=== PATIENT | female | born 1950 | race Caucasian/White ===

== ENCOUNTER → 2016-06-21 | Outpatient (CLI) | payer OTHER, BC ==
[~2016-06-21] MED LIST: ASPEC81 PO; METO50TA7 PO; MULT-506 PO; OXYC1TAB3 PO
--- NOTE | 2016-06-21 13:30 | MAMMOGRAPHY REPORT ---
BILATERAL DIGITAL SCREENING MAMMOGRAM WITH CAD: 06/21/2016 TECHNIQUE: Current study was also evaluated with a Computer Aided Detection (CAD) system. Bilatera l CC and MLO views were obtained. COMPARISON: Comparison is made to exams dated: 06/19/2015 mammogram, 06/09/2013 mammogram, 06/14/2014 ma mmogram, 05/28/2012 mammogram, 05/16/2011 mammogram - [facility], and 12/26/2008. BREAST COMPOSITION: The tissue of both breasts is heterogeneously dense, which may obscure small ma sses. FINDINGS: No suspicious masses, calcifications, or areas of architectural distortion are noted in e ither breast. There has been no significant interval change compared to prior exams. IMPRESSION: ACR BI-RADS CATEGORY 1: NEGATIVE There is no mammographic evidence of malignancy. A 1 year screening mammogram is recommended. The p atient will receive written notification of the results. Approximately 10% of breast cancers are not detected with mammography. A negative mammographic repor t should not delay biopsy if a clinically suggestive mass is present. Dayana Wright M.D. ah/:06/21/2016 09:35:06 Tubing Oiler: Isabel HURT(R)(M), [facility] letter sent: Normal 1/2 BI-RADS Code: ACR BI-RADS Category 1: Negative
== END | disposition home or self-care (01) ==
LOC: C.MAMM 08:00
PROVIDERS: ATTEND Family Medicine
DX: Z12.31 Encounter for screening mammogram for malignant neoplasm of breast (principal)

== ENCOUNTER → 2017-06-23 | Outpatient (CLI) | payer OTHER, BC ==
[~2017-06-23] MED LIST changes: -METO50TA7 PO; +METO50TA8 PO
--- NOTE | 2017-06-24 15:13 | MAMMOGRAPHY REPORT ---
BILATERAL DIGITAL SCREENING MAMMOGRAM TOMOSYNTHESIS WITH CAD: 06/23/2017 CLINICAL HISTORY: Routine screening. TECHNIQUE: Breast tomosynthesis in addition to standard 2D mammography was performed. Current study was also evaluated with a Computer Aided Detection (CAD) system. COMPARISON: Comparison is made to exams dated: 06/21/2016 mammogram, 06/19/2015 mammogram, 06/14/2014 rachel mogram, 06/09/2013 mammogram, 05/28/2012 mammogram, and 05/16/2011 mammogram - [facility] er. BREAST COMPOSITION: The tissue of both breasts is heterogeneously dense, which may obscure small mas ses. FINDINGS: The parenchymal pattern is unchanged. No developing mass, architectural distortion or clus ter of suspicious microcalcifications is seen in either breast. IMPRESSION: ACR BI-RADS CATEGORY 2: BENIGN There is no mammographic evidence of malignancy. A 1 year screening mammogram is recommended. The pa tient will receive written notification of the results. Approximately 10% of breast cancers are not detected with mammography. A negative mammographic report should not delay biopsy if a clinically suggestive mass is present. Debby Cohen M.D. ay/:06/23/2017 15:10:50 Engineering Design Manager: Inder HURT(R)(M), [facility] letter sent: Normal 1/2 BI-RADS Code: ACR BI-RADS Category 2: Benign
== END | disposition home or self-care (01) ==
LOC: C.MAMM 14:22
PROVIDERS: ATTEND Family Medicine
DX: Z12.31 Encounter for screening mammogram for malignant neoplasm of breast (principal)

== ENCOUNTER 2025-04-03 12:34 | Observation (INO) ==
[2025-04-03 13:18] LABS: Hematocrit (blood only) 33.7 % (37.0-47.0); Hemoglobin 11.1 g/dL (12.0-16.0); Immature Granulocytes # (auto) 0.05 K/uL (0.01-0.20); Immature Granulocytes % (auto) 0.8 %; Mean Corpuscular Hemoglobin 30.9 pg (25.0-34.0); Mean Corpuscular Volume 93.9 fL (80.0-100.0); Platelet Count 297 K/uL (130-400); RDW Standard Deviation 42.4 fL (36.4-46.3); Red Blood Count 3.59 M/uL (4.20-5.40); White Blood Count 6.24 K/ul (4.8-10.8)
[2025-04-03 13:25] LABS: Alanine Aminotransferase 29.0 U/L (7-52); Albumin Globulin Ratio 1.3 (0.9-2); Albumin Level 3.7 gm/dl (3.4-5.0); Alkaline Phosphatase 60.0 U/L (34-104); Anion Gap 8.0 (3-11); Bilirubin,Total 1.1 mg/dl (0.2-1.0); Blood Urea Nitrogen 26.0 mg/dl (6-23); Calcium 9.7 mg/dl (8.6-10.3); Carbon Dioxide 27.0 mmol/L (21-32); Chloride 100.0 mmol/L (98-107); Creatinine Clr Calc Pharmacy 45.5 ml/min; Globulin 2.8 gm/dl (2.5-4.0); Glucose 139.0 mg/dl (70-99(Fasting)); Lipase 59.0 U/L (11-82); Magnesium 1.9 mg/dl (1.7-2.4); Potassium 3.7 mmol/L (3.5-5.1); Sodium 135.0 mmol/L (136-145); Total Protein 6.5 gm/dl (6.0-8.3)
--- NOTE | 2025-04-03 13:39 | Emergency Department Note ---
Impression & Plan Syncope, ALS (amyotrophic lateral sclerosis), Hypothermia ED Provider Note NAME: TY ALBRIGHT AGE: 74 SEX: F : 1950 ARRIVES VIA: Ambulance INFORMANT: Patient ED PROVIDER(S): Jerrod Couch MD CHIEF COMPLAINT: Witnessed seizure-like episode/syncope, ALS PLAN: Disposition: Admit MEDICAL DECISION MAKING: The patient is a pleasant 74-year-old woman with a past medical history of recent diagnosis of ALS which has progressed rapidly since her diagnosis in January this year where the patient is unable to move bilateral upper and lower extremities who presents to the emergency department via EMS and then accompanied by family for evaluation of witnessed seizure-like activity/episode which occurred prior to arrival. Family reports that they were helping the patient move her bowels on the commode and the patient suddenly started reporting feeling flushed and asked for help to stand up but when she stood up then she felt worse and asked to sit down again and then the patient lost consciousness and developed brief 30 seconds of tonicity with flexion of the arms before regaining consciousness. Otherwise they deny any recent illness including fevers, cough, congestion, vomiting. On my evaluation the patient is fatigued, chronically ill-appearing but no acute distress, hypothermic with rectal temperature of 35.8, blood pressure 140s/60s and vital signs otherwise stable. She appears clinically dry. Motor function is at recent baseline per patient and family with weakness/paresis of bilateral upper and lower extremities. EKG without overt acute ischemia. CXR negative for acute cardiopulmonary process per my personal preliminary review/interpretation. WBC within normal limits. H/H decreased from December at 11.1/33.7. MCV is 93. Chemistry without metabolic acidosis. BUN is 26 consistent with patient's clinically dry appearance. Electrolytes without significant abnormality. High- sensitivity troponin is 7.1, within normal limits. LFTs are unremarkable. Lipase is normal. TSH within limits. CT of the head negative for acute abnormalities. Upon reevaluation the patient did feel improved following IV hydration and, famotidine, Zofran as well as Jacques hugger warming blanket where the patient had reached normothermia. However, given the patient's comorbidities with symptoms of syncope and hypothermia they agree with plan for admission for observation. Case was discussed with Dr. Roberts, [facility] hospitalist, who will evaluate the patient for admission. Further management per admitting team. Triage Nursing notes reviewed and agree them. Prior/external medical records reviewed Vital Signs: reviewed Differential diagnosis: Vasovagal event, dehydration, infection, hypoglycemia, electrolyte abnormalities, cardiac sources, intracerebral event, pulmonary embolism, seizure, toxicologic, neurologic, as well as other pathologies. ER treatment provided: See below. Diagnostics interpreted by me: ECG: Normal sinus rhythm, 67 bpm, no ectopy, no overt ST elevation or depression, QTc 433, QRS 70. Cardiac Monitoring: An order for continuous cardiac monitoring was placed and demonstrated normal sinus rhythm, 67 bpm, no ectopy. Laboratory studies: See below Imaging studies: See below Consultation(s): Case was discussed with Dr. Roberts, [facility] hospitalist, who will evaluate the patient for admission. HPI: Per MDM. ROS: See above HPI for pertinent positives & negatives. A total of 10 systems reviewed and were otherwise negative. VITALS:See Below PHYSICAL EXAMINATION: GENERAL: Awake, alert, fatigued-chronically ill-appearing, in no distress HENT: Normocephalic, atraumatic. Oropharynx with dry mucous membranes and otherwise unremarkable. EYES: Normal conjunctiva. Sclera non-icteric. NECK: Supple. No nuchal rigidity. FROM. No JVD. RESPIRATORY: Clear to auscultation. CARDIAC: Regular rate, normal rhythm. Extremities warm and well perfused. Pulses equal. ABDOMEN: Soft, non-distended. No tenderness to palpation. No rebound or guarding. No masses. MUSCULOSKELETAL: Chest examination reveals no tenderness. The back is symmetrical on inspection without obvious abnormality. There is no CVA tenderness to palpation. No joint edema. LOWER EXTREMITIES: Calves are equal size bilaterally and non-tender. No edema. No discoloration. NEURO: Weakness of bilateral upper and lower extremities at recent baseline in the setting of ALS. SKIN: No rash or jaundice noted. Jerrod Couch MD Past Med/Surg History Problem List (Updated 04/05/25 @ 13:34 by Jerrod Couch MD) Dependent for wheelchair mobility Constipation Hypothermia (Acute) ALS (amyotrophic lateral sclerosis) (Acute) Syncope (Acute) Slow transit constipation Vasovagal syncope ALS (amyotrophic lateral sclerosis) Incoordination and irregularity of voluntary movements Paresthesia Fasciculations Hyperreflexia Muscle weakness Recurrent UTI Urinary symptom or sign Undifferentiated inflammatory arthritis Actinic keratosis Chronic steroid use Right lumbar radiculopathy Dermatochalasis of both upper eyelids Brow ptosis, bilateral Arthritis Back pain Inflammatory arthritis Encounter for pre-operative examination Medical History History of anesthesia reaction " hard to wake up" History of COVID-19 11/2021 fatigue, aches, chills, no hospitalization, no current issues Osteoarthritis Degenerative disc disease Chronic back pain GERD (gastroesophageal reflux disease) Rheumatoid arthritis Peripheral neuropathy right foot mostly Hypertension Sjogren's syndrome Surgical History Status post epidural steroid injection History of breast biopsy right History of tooth extraction dental implant and caps [place] teeth extracted History of bilateral tubal ligation History of back surgery unsure of exact back surgery (to repair a herniated disc) lumbar History of appendectomy History of colonoscopy Family History Grandmother (Maternal) Diabetes Other No family history of adverse response to anesthesia Social History Smoking Status: Never smoker Second Hand Exposure: No; Do You Dip or Chew Tobacco: No; Tobacco Cessation Education Requested by Patient: No Hx Alcohol Use: Yes Alcohol type: wine Hx Substance Use: No Preferred Language: Khmer Communication Ability: Effective Superintendent Warehouse Required: No Beliefs That Will Affect Care: None Current Living Situation: Significant Other Other Information That Helps Us Care for You: No Feels Safe at Home: Yes Safety Concerns: Feels Safe At This Time Assistive Devices: Glasses and Walker Allergies Allergies Allergy/AdvReac Type Severity Reaction Status Date / Time Fish Containing Products Allergy Severe Anaphylaxis Verified 04/04/25 09:01 salmon oil Allergy Severe Anaphylaxis Verified 02/16/25 12:46 amlodipine Allergy Intermediate Confusion Verified 02/16/25 12:46 niacin Allergy Intermediate Unknown Verified 02/16/25 12:46 pravastatin Allergy Intermediate LIVER Verified 02/16/25 12:46 PROBLEM simvastatin Allergy Intermediate LIVER Verified 02/16/25 12:46 PROBLEMS acetaminophen [From Percocet] AdvReac Unknown Nausea Verified 02/16/25 12:46 oxycodone [From Percocet] AdvReac Unknown Nausea Verified 02/16/25 12:46 Home Meds Home Medications Medication Instructions Recorded Confirmed ascorbate calcium-bioflavonoid 1 tab PO QAM 11/23/19 04/03/25 1,000 mg-200 mg tablet (Olga-C with Bioflavonoids) ascorbic acid (vitamin C) 250 mg 250 mg PO QAM 11/23/19 04/03/25 tablet (Vitamin C) cholecalciferol (vitamin D3) 50 50 mcg PO QAM 11/23/19 04/03/25 mcg (2,000 unit) tablet (Vitamin D3) mupirocin 2 % topical ointment 1 applic topical BID PRN Dry Nasal 11/23/19 04/03/25 Passages nystatin 100,000 unit/gram topical 1 applic topical BID PRN Dry Skin 11/23/19 04/03/25 cream pimecrolimus 1 % topical cream 1 applic topical BID PRN eyelid 11/23/19 04/03/25 (Elidel) dryness vitamin B complex 1 tab PO QAM 11/23/19 04/03/25 hydrochlorothiazide 12.5 mg capsule 12.5 mg PO DAILY 10/21/24 04/03/25 olmesartan 20 mg PO DAILY 10/21/24 04/03/25 pantoprazole 20 mg tablet,delayed 20 mg PO DAILY 10/21/24 04/03/25 release pilocarpine HCl 5 mg tablet 5 mg PO BID 10/21/24 04/03/25 riluzole 50 mg tablet 50 mg PO Q12H 02/16/25 04/03/25 Previous Rx's Medication Instructions Recorded folic acid 1 mg tablet 1 mg PO QAM #90 tabs 05/21/24 lorazepam 0.5 mg tablet 0.5 mg PO DAILY PRN anxiety #2 tabs 12/29/24 etodolac 400 mg tablet 400 mg PO BID #180 tabs 01/11/25 Results & Data (ED) Vital Signs Vital Signs - 24 hr 04/03/25 12:50 04/03/25 13:02 04/03/25 13:03 Temperature 35.8 C L Temperature Source Rectal Pulse Rate 68 66 68 Respiratory Rate 18 19 Respiratory Effort / Characteristics Non-Labored Spontaneous Respiratory Depth Normal Respiratory Pattern Regular Blood Pressure 148/68 H 112/73 Blood Pressure Mean 94 89 Pulse Oximetry 94 96 Oxygen Delivery Method Room Air Sepsis Recent Fever Within 48 Hours No Sepsis New/Unexplained Change in Mental Status No Sepsis Action Taken by Nursing No Action Required 04/03/25 13:30 04/03/25 14:00 04/03/25 14:30 Temperature Temperature Source Pulse Rate 69 65 67 Respiratory Rate 21 15 12 Respiratory Effort / Characteristics Respiratory Depth Respiratory Pattern Blood Pressure 125/57 L 108/71 109/58 L Blood Pressure Mean 73 78 71 Pulse Oximetry 96 95 96 Oxygen Delivery Method Sepsis Recent Fever Within 48 Hours Sepsis New/Unexplained Change in Mental Status Sepsis Action Taken by Nursing 04/03/25 14:42 04/03/25 17:07 Temperature 36.4 C Temperature Source Oral Pulse Rate 81 Respiratory Rate Respiratory Effort / Characteristics Respiratory Depth Respiratory Pattern Blood Pressure Blood Pressure Mean Pulse Oximetry Oxygen Delivery Method Sepsis Recent Fever Within 48 Hours Sepsis New/Unexplained Change in Mental Status Sepsis Action Taken by Nursing Laboratory Data Attestation: I reviewed the patient's lab results. 04/03/25 12:43 04/03/25 12:43 Lab Results 04/03/25 04/03/25 Range/Units 12:43 16:14 WBC 6.24 (4.8-10.8) K/ul RBC 3.59 L (4.20-5.40) M/uL Hgb 11.1 L (12.0-16.0) g/dL Hct 33.7 L (37.0-47.0) % MCV 93.9 (80.0-100.0) fL MCH 30.9 (25.0-34.0) pg MCHC 32.9 (32.0-36.0) g/dL RDW Std Deviation 42.4 (36.4-46.3) fL RDW Coeff of Rashid 12.2 (11.5-14.5) % Plt Count 297 (130-400) K/uL MPV 9.0 L (9.4-12.4) fL Immature Gran % (Auto) 0.8 % Neut % (Auto) 64.3 % Lymph % (Auto) 18.8 % Sebastian % (Auto) 14.3 % Eos % (Auto) 1.3 % Baso % (Auto) 0.5 % Neut # (Auto) 4.02 (1.40-6.50) K/uL Lymph # (Auto) 1.17 L (1.20-3.40) K/uL Sebastian # (Auto) 0.89 H (0.11-0.59) K/uL Eos # (Auto) 0.08 (0.00-0.50) K/uL Baso # (Auto) 0.03 (0.00-0.20) K/uL Immature Gran # (Auto) 0.05 (0.01-0.20) K/uL Sodium 135 L (136-145) mmol/L Potassium 3.7 (3.5-5.1) mmol/L Chloride 100 (98-107) mmol/L Carbon Dioxide 27 (21-32) mmol/L Anion Gap 8 (3-11) BUN 26 H (6-23) mg/dl Creatinine 0.87 (0.6-1.2) mg/dl Est Cr Clr Drug Dosing 45.5 ml/min eGFR 69.01 BUN/Creatinine Ratio 29.9 H (10-20) Glucose 139 H (70-99(Fasting)) mg/dl Calcium 9.7 (8.6-10.3) mg/dl Phosphorus 4.7 (2.5-4.9) mg/dl Magnesium 1.9 (1.7-2.4) mg/dl Total Bilirubin 1.1 H (0.2-1.0) mg/dl AST 33 (13-39) U/L ALT 29 (7-52) U/L Alkaline Phosphatase 60 (34-104) U/L Troponin I High Sens 7.1 (0-14) pg/ml Total Protein 6.5 (6.0-8.3) gm/dl Albumin 3.7 (3.4-5.0) gm/dl Globulin 2.8 (2.5-4.0) gm/dl Albumin/Globulin Ratio 1.3 (0.9-2) Lipase 59 (11-82) U/L TSH 3.477 (0.300-4.500) uIu/ml Urine Color Dark Yellow Urine Appearance Clear (Clear) Urine pH 6.5 (4.5-7.5) Ur Specific [place] 1.017 (1.000-1.030) Urine Protein Negative (Negative) Urine Glucose (UA) Negative (Negative) Urine Ketones Trace H (Negative) Urine Blood Negative (Negative) Urine Nitrite Negative (Negative) Urine Bilirubin Negative (Negative) Urine Urobilinogen Negative (Negative) Ur Leukocyte Esterase Negative (Negative) Urine Comment Administered Medications Discontinued Medications Ascorbic Acid (Ascorbic Acid 500 Mg Tab) 250 mg PO QAM [facility] Stop: 05/04/25 08:59 Last Admin: 04/04/25 08:50 Dose: 250 mg Documented By: ROBERTO Enoxaparin Sodium (Enoxaparin Inj 40 Mg/0.4 Ml Syr) 40 mg SQ Q24H [facility] Stop: 05/03/25 19:59 Last Admin: 04/03/25 20:08 Dose: 40 mg Documented By: EMILI Folic Acid (Folic Acid 1 Mg Tab) 1 mg PO QAM [facility] Stop: 05/04/25 08:59 Last Admin: 04/04/25 08:50 Dose: 1 mg Documented By: ROBERTO Sodium Chloride (Nss) 1,000 mls @ 999 mls/hr IV .Q1H1M ONE Stop: 04/03/25 14:07 Last Infusion: 04/03/25 14:55 Dose: Infused Documented By: Admin: 04/03/25 13:46 Dose: 999 mls/hr Documented By: ROSELYN Sodium Chloride (Nss) 1,000 mls @ 999 mls/hr IV .Q1H1M ONE Stop: 04/03/25 14:31 Last Infusion: 04/03/25 16:14 Dose: Infused Documented By: Admin: 04/03/25 15:10 Dose: 999 mls/hr Documented By: STAR Famotidine (Pepcid 20mg Iv Push) 20 mg in 5 mls @ 2.5 mls/min IV NOW STA Stop: 04/03/25 13:32 Last Admin: 04/03/25 13:46 Dose: 2.5 mls/min Documented By: ROSELYN Lorazepam (Lorazepam 0.5 Mg Tab) 0.5 mg PO DAILY PRN PRN Reason: anxiety Stop: 05/03/25 18:45 Last Admin: 04/03/25 21:57 Dose: 0.5 mg Documented By: EMILI Misjoaquinaneous (Order Awaiting Action (Etodolac 400 Mg Tablet)) 1 each N/A QS [facility] Stop: 05/04/25 00:00 Last Admin: 04/04/25 10:35 Dose: Not Given Documented By: Admin: 04/03/25 23:44 Dose: Not Given Documented By: EMILI Miscellaneous (Order Awaiting Action (Pimecrolimus [Elidel] 1 % Cream)) 1 each N/A QS [facility] Stop: 05/04/25 00:00 Last Admin: 04/04/25 08:51 Dose: Not Given Documented By: Admin: 04/03/25 23:44 Dose: Not Given Documented By: DARIUSZW Nifedipine (Nifedipine Extended Rel 30 Mg Tabcr) 60 mg PO QAM [facility] Stop: 05/04/25 08:59 Last Admin: 04/04/25 08:49 Dose: 60 mg Documented By: ROBERTO Riluzole 50 Mg Tablet - Non- Formulary Patient's Own Med 1 each EXT Q12H [facility] Stop: 05/03/25 22:29 Last Admin: 04/04/25 10:31 Dose: 1 ea Documented By: Admin: 04/03/25 21:57 Dose: 1 ea Documented By: EMILI Ondansetron HCl (Ondansetron Inj 2 Mg/Ml 2 Ml Vial) 4 mg IV NOW STA Stop: 04/03/25 13:32 Last Admin: 04/03/25 13:46 Dose: 4 mg Documented By: ROSELYN Pantoprazole Sodium (Pantoprazole 40 Mg Tab) 40 mg PO DAILY [facility] Stop: 05/04/25 08:59 Last Admin: 04/04/25 08:52 Dose: 40 mg Documented By: ROBERTO Pilocarpine HCl (Pilocarpine Hcl 5 Mg Tablet) 5 mg PO BID [facility] Stop: 05/03/25 20:59 Last Admin: 04/04/25 08:43 Dose: 5 mg Documented By: Admin: 04/03/25 21:57 Dose: 5 mg Documented By: EMILI Polyethylene Glycol (Polyethylene (Miralax) 17 Gm Pack) 17 gm PO DAILY [facility] Stop: 05/04/25 08:59 Last Admin: 04/04/25 09:15 Dose: 17 gm Documented By: ROBERTO Vitamin B Complex (Vitamin B Complex Tab) 1 tab PO QAM [facility] Stop: 05/04/25 08:59 Last Admin: 04/04/25 08:50 Dose: 1 tab Documented By: ROBERTO Vitamin D (Cholecalciferol 25 Mcg (1000 Units) Tab) 50 mcg PO QAM [facility] Stop: 05/04/25 08:59 Last Admin: 04/04/25 08:50 Dose: 50 mcg Documented By: ROBERTO Imaging Data Radiologist's Impression: Chest X-Ray 04/03/25 13:07 Clinical History: Seizure Technique: A frontal view of the chest was obtained Findings: There are no confluent pulmonary infiltrates. The heart size is within normal limits. No pleural effusion or pneumothorax is seen. There is no definite pulmonary nodule. No fracture is noted. No foreign body is seen Impression: No active disease Electronically signed by Jesus Guthrie 04-03-2025 13:[address] 04/03/25 14:46 COMPARISON: MRI 01/09/2025 TECHNIQUE: Contiguous axial images were obtained through the brain. Coronal reconstructions were performed from the raw data. Dose reduction according to patient size and/or automated exposure control techniques have been utilized for this exam. FINDINGS: The bony calvarium is intact. There is no hydrocephalus, midline shift, or extra-axial fluid collections. There is no mass effect, hemorrhage, or edema. No significant white matter abnormalities. IMPRESSION: No acute intracranial pathology. Electronically signed by Samantha Phelps 04-03-2025 3:16 PM Discharge Plan Visit Data Chief Complaint: Seizure Stated Complaint: SEIZURE ED Provider: Jerrod Couch Discharge Problem: Syncope, ALS (amyotrophic lateral sclerosis), Hypothermia Patient Disposition: Admitted As Inpatient Condition: Fair Discharge Instructions Interventions: ED Discharge Assessment Last Done: 04/03/25 18:19 Discharge Problem: Syncope Qualifiers: Syncope type: vasovagal syncope Qualified Code(s): R55 - Syncope and collapse Hypothermia Qualifiers: Encounter type: initial encounter Qualified Code(s): T68.XXXA - Hypothermia, initial encounter
[2025-04-03 13:42] LABS: Thyroid Stimulating Hormone 3.477 uIu/ml (0.300-4.500)
[2025-04-03] MEDS: ONDANSETRON INJ 2 MG/ML 2 ML VIAL IV STA (13:46)
[2025-04-03] MEDS: FAMOTIDINE 20MG IV PUSH 20 MG/5 ML SYR IV STA (13:46)
[2025-04-03] MEDS: SODIUM CHLORIDE 0.9% 1,000 ML IV ONE ×2 (13:46→15:10)
--- NOTE | 2025-04-03 13:59 | XRay Report ---
Clinical History: Seizure Technique: A frontal view of the chest was obtained Findings: There are no confluent pulmonary infiltrates. The heart size is within normal limits. No pleural effusion or pneumothorax is seen. There is no definite pulmonary nodule. No fracture is noted. No foreign body is seen Impression: No active disease Electronically signed by Jesus Guthrie 04-03-2025 13:58 PM
--- NOTE | 2025-04-03 15:16 | CT Scan Report ---
COMPARISON: MRI 01/09/2025 TECHNIQUE: Contiguous axial images were obtained through the brain. Coronal reconstructions were performed from the raw data. Dose reduction according to patient size and/or automated exposure control techniques have been utilized for this exam. FINDINGS: The bony calvarium is intact. There is no hydrocephalus, midline shift, or extra-axial fluid collections. There is no mass effect, hemorrhage, or edema. No significant white matter abnormalities. IMPRESSION: No acute intracranial pathology. Electronically signed by Samantha Phelps 04-03-2025 3:16 PM
[2025-04-03 16:30] LABS: Appearance Urine Clear (Clear); Glucose Urine UA Negative (Negative)
--- NOTE | 2025-04-03 16:53 | History & Physical Report ---
Date of Service April 03, 2025 Assessment & Plan (1) Vasovagal syncope: (2) Slow transit constipation: (3) ALS (amyotrophic lateral sclerosis): Plan In summary this is a 74-year-old female who presents to the [facility] after witnessed episode of syncope occurring in conjunction with an attempted straining bowel movement #Vasovagal syncope Witnessed; noted prodromal nausea, diaphoresis, flushing sensation, bowel and bladder incontinence, flexion of the upper extremities; no significant pertinent comorbidities however patient is also diagnosed with ALS, this is not associated with any increased risk of epileptic episodes; initial EKG normal; suspect that this is most consistent with a vasovagal syncope secondary to strain bowel movements; nothing the patient's assessment thus far is concerning for more occult condition; potential plans of assessment were discussed with family and patient at bedside, they agree with a more narrow assessment given her radicular presentation but observation to ensure that there are no recurrent episodes and that she can pass her bowel movements without difficulty -No indication for following daily laboratory assessment - No indication for additional central nervous system imaging - With normal EKG, there is no indication for TTE - Presenting complaint is not consistent with epileptic episode of seizure, no indication for EEG #Slow transit constipation // ALS The patient's constipation is relatively new and sudden in onset, may be related to progression of patient's ALS now involving autonomic nervous systems however this is not something that will be able to be defined during her current hospitalization; recommendations for continued MiraLAX were discussed at the time of admission The remainder the patient's chronic medical conditions are stable and do not require adjustment to their outpatient regimen at this time DVT PPx: Start Lovenox 40 mg SQ daily GI PPx: Not indicated Admission and Anticipated Discharge Date Anticipated date of discharge: 04/04/25 History of Present Illness Chief Complaint: Syncope, witnessed Primary Care Provider: Lurdes Caba DO Ms. Arenas is a 74-year-old female with active medical conditions ALS, Sjogren syndrome, gastroesophageal reflux disease, essential hypertension among other chronic medical conditions who presents to [facility] on 04/03 after witnessed episode of syncope occurring while attempting to have a bowel movement with recent acute constipation. The patient over the past 4872 hours has had increasing symptoms of constipation with straining to have a bowel movement. He began using MiraLAX approximately 2 days prior to presentation. Without success. On the day of presentation the patient attempted to glycerin suppositories, the latter which did precipitate a bowel movement however while straining during this movement the patient, accompanied by her daughter, became suddenly flushed, clammy, diaphoretic, and lost consciousness with abnormal movements of the upper extremities. She did not lose continence of both her bowel and bladder. She rapidly regained consciousness without significant confusion or somnolence after the episode. They are brought to the emergency department for evaluation. The patient at the time my evaluation has no new complaints or concerns; they deny headache, vision change, nausea, vomiting, abdominal pain, perianal discomfort. They deny any recent hematuria, dysuria, abnormal urinary odors or change in frequency of going to the bathroom. Allergies Allergy/AdvReac Type Severity Reaction Status Date / Time salmon oil Allergy Severe Anaphylaxis Verified 02/16/25 12:46 amlodipine Allergy Intermediate Confusion Verified 02/16/25 12:46 niacin Allergy Intermediate Unknown Verified 02/16/25 12:46 pravastatin Allergy Intermediate LIVER Verified 02/16/25 12:46 PROBLEM simvastatin Allergy Intermediate LIVER Verified 02/16/25 12:46 PROBLEMS acetaminophen [From Percocet] AdvReac Unknown Nausea Verified 02/16/25 12:46 oxycodone [From Percocet] AdvReac Unknown Nausea Verified 02/16/25 12:46 salmon Allergy Severe Anaphylaxis Uncoded 02/16/25 12:46 Home Medications Medication Instructions Recorded Confirmed Type ascorbate calcium-bioflavonoid 1 tab PO QAM 11/23/19 04/03/25 History 1,000 mg-200 mg tablet (Olga-C with Bioflavonoids) ascorbic acid (vitamin C) 250 mg 250 mg PO QAM 11/23/19 04/03/25 History tablet (Vitamin C) cholecalciferol (vitamin D3) 50 50 mcg PO QAM 11/23/19 04/03/25 History mcg (2,000 unit) tablet (Vitamin D3) mupirocin 2 % topical ointment 1 applic topical BID PRN Dry Nasal 11/23/19 04/03/25 History Passages nystatin 100,000 unit/gram topical 1 applic topical BID PRN Dry Skin 11/23/19 04/03/25 History cream pimecrolimus 1 % topical cream 1 applic topical BID PRN eyelid 11/23/19 04/03/25 History (Elidel) dryness vitamin B complex 1 tab PO QAM 11/23/19 04/03/25 History folic acid 1 mg tablet 1 mg PO QAM #90 tabs 05/21/24 04/03/25 Rx nifedipine 60 mg tablet,extended 60 mg PO QAM #90 tabs 10/08/24 04/03/25 Rx release 24 hr hydrochlorothiazide 12.5 mg capsule 12.5 mg PO DAILY 10/21/24 04/03/25 History olmesartan 20 mg PO DAILY 10/21/24 04/03/25 History pantoprazole 20 mg tablet,delayed 20 mg PO DAILY 10/21/24 04/03/25 History release pilocarpine HCl 5 mg tablet 5 mg PO BID 10/21/24 04/03/25 History lorazepam 0.5 mg tablet 0.5 mg PO DAILY PRN anxiety #2 tabs 12/29/24 04/03/25 Rx etodolac 400 mg tablet 400 mg PO BID #180 tabs 01/11/25 04/03/25 Rx riluzole 50 mg tablet 50 mg PO Q12H 02/16/25 04/03/25 History Past Med/Surg History Problem List (Updated 04/03/25 @ 16:46 by Robert Roberts DO) Slow transit constipation Vasovagal syncope ALS (amyotrophic lateral sclerosis) Incoordination and irregularity of voluntary movements Paresthesia Fasciculations Hyperreflexia Muscle weakness Recurrent UTI Urinary symptom or sign Undifferentiated inflammatory arthritis Actinic keratosis Chronic steroid use Right lumbar radiculopathy Dermatochalasis of both upper eyelids Brow ptosis, bilateral Arthritis Back pain Inflammatory arthritis Encounter for pre-operative examination Medical History History of anesthesia reaction " hard to wake up" History of COVID-19 11/2021 fatigue, aches, chills, no hospitalization, no current issues Osteoarthritis Degenerative disc disease Chronic back pain GERD (gastroesophageal reflux disease) Rheumatoid arthritis Peripheral neuropathy right foot mostly Hypertension Sjogren's syndrome Surgical History Status post epidural steroid injection History of breast biopsy right History of tooth extraction dental implant and caps [place] teeth extracted History of bilateral tubal ligation History of back surgery unsure of exact back surgery (to repair a herniated disc) lumbar History of appendectomy History of colonoscopy Family History Grandmother (Maternal) Diabetes Other No family history of adverse response to anesthesia Social History Smoking Status: Never smoker Second Hand Exposure: No; Do You Dip or Chew Tobacco: No; Hx Alcohol Use: Yes Alcohol type: wine Hx Substance Use: No Preferred Language: Norwegian Communication Ability: Effective Core Analysis Operator Required: No Beliefs That Will Affect Care: None Current Living Situation: Family Feels Safe at Home: Yes Assistive Devices: Glasses Review of Systems Review of Systems: Review of constitutional, gastrointestinal, genitourinary, neurologic, car diovascular, pulmonary systems was unremarkable except for pertinent positive and negative findings discussed above Physical Exam Physical Exam: General: Adult female in no acute distress Vital Signs: Reviewed HEENT: Pupils equally round and reactive to light, extraocular motion intact; tacky mucous membranes Pulmonary: Symmetric chest wall excursion without restriction, clear to auscultation bilaterally Cardiovascular: Regular rate and rhythm without murmurs, rubs, or gallops; S1 and S2 normal; right radial pulse 2+; no notable lower extremity edema Gastrointestinal: Soft, nontender; normal frequency and pitch bowel sounds throughout the abdomen Musculoskeletal: Generalized muscle atrophy especially of the upper and lower extremities; upper and lower extremity strength 3/5 Neurologic: CN II-XII grossly intact Results & Data Results & Data Vital Signs (Past 12 Hours) Vital Signs Temp Pulse Resp BP Pulse Ox O2 Del Method 04/03/25 14:42 36.4 C 04/03/25 14:30 67 12 109/58 L 96 04/03/25 14:00 65 15 108/71 95 04/03/25 13:30 69 21 125/57 L 96 04/03/25 13:03 68 04/03/25 13:02 66 19 112/73 96 04/03/25 12:50 35.8 C L 68 18 148/68 H 94 Room Air Laboratory Results Reviewed Diagnostic Findings CT head and Chest film reviewed ECG Additional Comments: NSR Code Status & VTE Plan Code Status Full code PG Care Time/CCT Total # of Minutes Spent Total Time Spent with Patient: Total time spent is greater than 50% in coordination of care (as documented) at patient's floor/unit and/or counseling patient: Coding Level of Care Code 51416 INT INP/OBS CARE Diagnoses Vasovagal syncope R55 Slow transit constipation K59.01 ALS (amyotrophic lateral sclerosis) G12.21
[2025-04-03] MEDS ORDERED: MUPIROCIN 2% OINT 22 GM TUBE TOP PRN (18:46)
[2025-04-03] MEDS: ENOXAPARIN INJ 40 MG/0.4 ML SYR SQ SCH (20:08)
[2025-04-03] MEDS: PILOCARPINE HCL 5 MG TABLET PO SCH (21:57)
[2025-04-03] MEDS: LORazepam 0.5 MG TAB PO PRN (21:57)
[2025-04-04 08:29] VITALS: O2SAT 95
[2025-04-04] MEDS: NIFEdipine EXTENDED REL 30 MG TABCR PO SCH (08:49)
[2025-04-04] MEDS: VITAMIN B COMPLEX TAB PO SCH (08:50)
[2025-04-04] MEDS: FOLIC ACID 1 MG TAB PO SCH (08:50)
[2025-04-04] MEDS: ASCORBIC ACID 500 MG TAB PO SCH (08:50)
[2025-04-04] MEDS: CHOLECALCIFEROL 25 MCG (1000 UNITS) TAB PO SCH (08:50)
[2025-04-04] MEDS ORDERED: hydroCHLOROthiazide 25 MG TAB PO SCH (09:00)
[2025-04-04] MEDS ORDERED: NON-FORMULARY MEDICATION (Ascorbate Calcium-Bioflavonoid [Ester-C With Bioflavonoids] 1,00 PO SCH (09:00)
[2025-04-04] MEDS: POLYETHYLENE (MIRALAX) 17 GM PACK PO SCH (09:15)
[2025-04-04 12:10] VITALS: BP 146/72; RESP 14; TEMP 97.9
--- NOTE | 2025-04-04 12:11 | Discharge Summary ---
Date of Service April 04, 2025 Admission HPI Per Admitting Provider Ms. Arenas is a 74-year-old female with active medical conditions ALS, Sjogren syndrome, gastroesophageal reflux disease, essential hypertension among other chronic medical conditions who presents to [facility] on 04/03 after witnessed episode of syncope occurring while attempting to have a bowel movement with recent acute constipation. The patient over the past 4872 hours has had increasing symptoms of constipation with straining to have a bowel movement. He began using MiraLAX approximately 2 days prior to presentation. Without success. On the day of presentation the patient attempted to glycerin suppositories, the latter which did precipitate a bowel movement however while straining during this movement the patient, accompanied by her daughter, became suddenly flushed, clammy, diaphoretic, and lost consciousness with abnormal movements of the upper extremities. She did not lose continence of both her bowel and bladder. She rapidly regained consciousness without significant confusion or somnolence after the episode. They are brought to the emergency department for evaluation. The patient at the time my evaluation has no new complaints or concerns; they deny headache, vision change, nausea, vomiting, abdominal pain, perianal discomfort. They deny any recent hematuria, dysuria, abnormal urinary odors or change in frequency of going to the bathroom. Admission Exam Per Admitting Provider General: Adult female in no acute distress Vital Signs: Reviewed HEENT: Pupils equally round and reactive to light, extraocular motion intact; tacky mucous membranes Pulmonary: Symmetric chest wall excursion without restriction, clear to auscultation bilaterally Cardiovascular: Regular rate and rhythm without murmurs, rubs, or gallops; S1 and S2 normal; right radial pulse 2+; no notable lower extremity edema Gastrointestinal: Soft, nontender; normal frequency and pitch bowel sounds throughout the abdomen Musculoskeletal: Generalized muscle atrophy especially of the upper and lower extremities; upper and lower extremity strength 3/5 Neurologic: CN II-XII grossly intact Principal Diagnosis Vasovagal syncope Discharge Exam General: Adult female in no acute distress Vital Signs: Reviewed HEENT: Pupils equally round and reactive to light, extraocular motion intact; tacky mucous membranes Pulmonary: Symmetric chest wall excursion without restriction, clear to auscultation bilaterally Cardiovascular: Regular rate and rhythm without murmurs, rubs, or gallops; S1 and S2 normal; right radial pulse 2+; no notable lower extremity edema Gastrointestinal: Soft, nontender; normal frequency and pitch bowel sounds throughout the abdomen Musculoskeletal: Generalized muscle atrophy especially of the upper and lower extremities; upper and lower extremity strength 3/5 Neurologic: CN II-XII grossly intact Discharge Data Allergies Allergy/AdvReac Type Severity Reaction Status Date / Time Fish Containing Products Allergy Severe Anaphylaxis Verified 04/04/25 09:01 salmon oil Allergy Severe Anaphylaxis Verified 02/16/25 12:46 amlodipine Allergy Intermediate Confusion Verified 02/16/25 12:46 niacin Allergy Intermediate Unknown Verified 02/16/25 12:46 pravastatin Allergy Intermediate LIVER Verified 02/16/25 12:46 PROBLEM simvastatin Allergy Intermediate LIVER Verified 02/16/25 12:46 PROBLEMS acetaminophen [From Percocet] AdvReac Unknown Nausea Verified 02/16/25 12:46 oxycodone [From Percocet] AdvReac Unknown Nausea Verified 02/16/25 12:46 Consultations 04/03/25 15:45 ED Decision to Admit Stat Ordered Studies 04/03/25 14:46 CT head/brain wo con Stat Hospital Course (1) ALS (amyotrophic lateral sclerosis): (2) Vasovagal syncope: (3) Constipation: Plan In summary this is a 74-year-old female who presents to the [facility] after witnessed episode of syncope occurring in conjunction with an attempted straining bowel movement PLAN ON Discharge - DC Nifedipine and Hydrochlorothiazide; BP on softer side. - F.U with PCP in 1 week. - Continue Miralax to soften stool and avoid straining. #Vasovagal syncope Witnessed; noted prodromal nausea, diaphoresis, flushing sensation, bowel and bladder incontinence, flexion of the upper extremities; no significant pertinent comorbidities however patient is also diagnosed with ALS, this is not associated with any increased risk of epileptic episodes; initial EKG normal; suspect that this is most consistent with a vasovagal syncope secondary to strain bowel movements; nothing the patient's assessment thus far is concerning for more occult condition; potential plans of assessment were discussed with family and patient at bedside, they agree with a more narrow assessment given her radicular presentation but observation to ensure that there are no recurrent episodes and that she can pass her bowel movements without difficulty -No indication for following daily laboratory assessment - No indication for additional central nervous system imaging - With normal EKG, there is no indication for TTE - Presenting complaint is not consistent with epileptic episode of seizure, no indication for EEG #Slow transit constipation // ALS The patient's constipation is relatively new and sudden in onset, may be related to progression of patient's ALS now involving autonomic nervous systems however this is not something that will be able to be defined during her current hospitalization; recommendations for continued MiraLAX were discussed at the time of admission The remainder the patient's chronic medical conditions are stable and do not require adjustment to their outpatient regimen at this time. Total Time Total Time Spent Total Time Spent (In Minutes): See attending's attestation Discharge Plan Discharge Items Patient Disposition: Home - Self-Care Reason For Visit: SYNCOPE, VASOVAGAL Discharge Diagnosis: Vasovagal syncope Condition on Discharge: Fair Activity: Resume your previous activity Non-emergency contact: Primary Care Provider Call non-emergency contact if: your symptoms worsen Follow-up/Referrals: Lurdes Caba DO [Primary Care Provider] - 04/11/25 2:25 pm Diet: Regular Addtl Attending Provider Instructions: You were admitted to the hospital for overnight observation after you presented to hospital for loss of transient consciousness while you were defecating with background of constipation. You were treated with stool softener. During hospital admission, symptoms did not reoccur. Since you had this identifiable cause and your episode was witnessed, this is most likely episode secondary to hard defecation with constipation. However there are some medication on your list like Nifedipine( calcium channel ag), unsure of why you are on this an d this might have worsened the symptoms. Please have follow up with your PCP to discuss adjusting your medication.For now we have held your Nifedipine and water pill Hydrochlorthiazide. And please feel free to revisit ED if you have another event like this. A discharge summary will be sent to your primary care physician to ensure continuity of care. Please bring this discharge summary with you to your next office appointment so that your provider can review it at that time. Medications: Your medication list has been reviewed and reconciled upon discharge to ensure accuracy and continuity of care. An updated list of all your medications is included with your hospital discharge paperwork. Please review this list closely and make note of any changes to your medications. 1. Take Miralax OTC with aim to make your stool soft and make sure to drink at least 50-60 ounces of fluid in a day. 2. Hold Nifedipine 60 mg( unsure indication, ?HTN). Discuss with PCP for further . 3. Hydrochlorothiazide( blood pressure med) has been stopped for 1 week. Discuss with PCP for restart, depending on repeat blood pressure check. Follow up appointments: -Make a follow up appointment with your PCP within the next week. It is very important that you follow up with them shortly after discharge from the hospital. - Keep all of your follow up appointments as already scheduled. If you cannot make an appointment, notify your provider. CONTACT YOUR PRIMARY CARE PROVIDER if you experience any of the following: - Difficulty following your treatment plan - Difficulty taking any of your medications CALL 911 OR GO TO THE EMERGENCY DEPARTMENT if you experience any of the following: - Another episode of syncopal event - Sudden, severe abdominal pain or nausea/vomiting - Severe chest pain or chest pain that radiates to your jaw or arm - Sudden, severe shortness of breath or difficulty breathing Pending Studies at Discharge: No Stand-Alone Forms: My [employer], Smoking Cessation Medications and DC Order Prescriptions: Continued folic acid 1 mg tablet 1 mg PO QAM Qty: 90 3RF Hold Instructions: SURGERY etodolac 400 mg tablet 400 mg PO BID Qty: 180 0RF riluzole 50 mg tablet 50 mg PO Q12H Rx Instructions: administer on an empty stomach, at least 1 hour before or 2 hours after food/meal(s) pantoprazole 20 mg tablet,delayed release (DR/EC) 20 mg PO DAILY olmesartan 20 mg PO DAILY pilocarpine HCl 5 mg tablet 5 mg PO BID lorazepam 0.5 mg tablet 0.5 mg PO DAILY PRN (Reason: anxiety) Qty: 2 0RF Rx Instructions: on po an hour before MRI; may repeat dose right before MRI if needed pimecrolimus [Elidel] 1 % Cream 1 applic TOPICAL BID PRN (Reason: eyelid dryness) ascorbic acid (vitamin C) [Vitamin C] 250 mg Tablet 250 mg PO QAM Hold Instructions: SURGERY nystatin 100,000 unit/gram Cream 1 applic TOPICAL BID PRN (Reason: Dry Skin) vitamin B complex Tablet 1 tab PO QAM Hold Instructions: SURGERY mupirocin 2 % Ointment 1 applic TOPICAL BID PRN (Reason: Dry Nasal Passages) cholecalciferol (vitamin D3) [Vitamin D3] 50 mcg (2,000 unit) Tablet 50 mcg PO QAM Hold Instructions: SURGERY Olga-C with Bioflavonoids 1,000-200 mg Tablet 1 tab PO QAM Hold Instructions: SURGERY Held hydrochlorothiazide 12.5 mg capsule 12.5 mg PO DAILY Hold Instructions: Resume on 04/14/25. Discontinued nifedipine 60 mg tablet extended release 24hr 60 mg PO QAM Qty: 90 3RF Discharge Orders: Discharge Order (Routine); Ordered 04/04/25 Ordered By: Jennie Del Castillo Admission Data Admit Date/Time: 04/03/25 16:55 Attending Provider: Federico Yepez Admit Provider: Robert Roberts Primary Care Provider: Lurdes Caba Other Providers: Robert Roberts Other Interventions: Discharge Summary Assessment (RN) Last Done: 04/04/25 14:08 Supervising Physician Co-Signing Physician Notes Resident Physician Supervision Note: I personally examined the patient and verified all quiles points of history and exam, discussed case, and agree with decision making with Dr. Del Castillo Patient was seen in company of her family she was doing well she wants to go home she will still have her neurological manifestations of ALS. She understands nature of vasovagal syncope especially with regard to her constipation and rectal pressure Cardiopulmonary examination was normal. Patient was felt stable to go home. I discussed the case with the resident and agree with the findings and plan as documented in the note. Any exceptions or clarifications are listed here: Documented By: Federico Yepez MD Home Health Attestation I certify that this patient is under my care and that I, or a physicians ophthalmology assistant working with me, had a face to-face encounter that meets the home health [id number] encounter requirements with this patient. The encounter with the patient was in whole, or in part, for the following medical condition, which is the primary reason for home health care (list medical condition): I certify that, based on my findings, the following services are medically necessary home health services: My clinical findings support the need for the above services because: Further, I certify that my clinical findings support that this patient is homebound (i.e. absences from home require considerable and taxing effort and are for medical reasons or synagogue services or infrequently or of short duration when for other reasons) because: Certification for Home Health Services: Based on the above findings, I certify that this patient is confined to the home and needs intermittent fci care, physical therapy and/or speech therapy or continues to need occupational therapy. The patient is under my care, and I have initiated the establishment of the plan of care. This patient will be followed by a physician who will periodically review the plan of care. Resident Activity Tracking Resident Involvement: Resident Care Provided Care Provided: Adult [facility]
[2025-04-04 14:10] VITALS: PULSE 77
--- NOTE | 2025-04-04 14:13 | Electrocardiogram Report ---
Test Reason : Blood Pressure : */* mmHG Vent. Rate : 67 BPM Atrial Rate : 67 BPM P-R Int : 148 ms QRS Dur : 70 ms QT Int : 410 ms P-R-T Axes : 15 -3 23 degrees QTcB Int : 433 ms Normal sinus rhythm Low voltage QRS Borderline ECG When compared with ECG of 08-Jul-2022 10:39, No significant change was found Confirmed by Thuan Cross ([id number]) on 04/04/2025 2:13:03 PM Referred By: REFERRED SELF Confirmed By: Thuan Cross
--- NOTE | 2025-04-05 07:28 | Billing Data ---
Date of Service April 05, 2025 Coding Level of Care Code 75789 IN/OBS DISCH 30 MIN/LESS
== END 2025-04-04 14:36 | disposition home or self-care (01) ==
LOC: ED 12:34 → 3E 12:34 → SUATTDRO 16:55 → 3E 18:19
DX: R55 Syncope and collapse; Z88.5 Allergy status to narcotic agent; Z88.8 Allergy status to other drugs, medicaments and biological substances; Z79.899 Other long term (current) drug therapy; K59.01 Slow transit constipation; Z91.013 Allergy to seafood; G12.21 Amyotrophic lateral sclerosis